=== PATIENT | male | born 1960 | race Caucasian/White ===

== ENCOUNTER → 2017-10-24 | Outpatient (CLI) | payer OTHER ==
[2016-04-26 18:33] VITALS: BP 159/84
[~2017-10-24] MED LIST: CARV25TA2 PO; CARV6.252 PO; FURO40TA4 PO; PROP20TA PO; TAMS0.4C97 PO
[2017-10-25 12:11] LABS: FREE T4 0.99 ng/dL (0.76-1.46); THYROID STIM HORMONE (TSH) 0.059 uIU/mL (0.358-3.740)
== END | disposition home or self-care (01) ==
LOC: LAB 13:15
PROVIDERS: ATTEND Specialist
DX: E05.90 Thyrotoxicosis, unspecified without thyrotoxic crisis or storm (principal); I10 Essential (primary) hypertension; Z87.891 Personal history of nicotine dependence
CPT/HCPCS: 36415; 83520; 84439; 84443

== ENCOUNTER → 2018-04-04 | Outpatient (CLI) | payer OTHER ==
[2016-04-26 18:33] VITALS: BP 159/84
[2018-04-04 21:08] LABS: THYROXINE 10.7 ug/dL (4.5-12.0)
== END | disposition home or self-care (01) ==
LOC: LAB 10:12
PROVIDERS: ATTEND General Practice
DX: E03.9 Hypothyroidism, unspecified (principal)
CPT/HCPCS: 36415; 84436; 84443; 84480